=== PATIENT | male | born 1995 | race African-American/Black ===

== ENCOUNTER 2017-05-26 21:52 | Emergency (ER) | payer BC ==
--- NOTE | 2017-05-27 01:08 | ED ---
GI/ HPI - HPI Summary HPI Summary: pt was have vaginal intercourse with partner who was having her menses and condom broke---patient wishing to discuss hiv, STI exposure - History of Current Complaint Chief Complaint: EDGeneral Time Seen by Provider: 05/27/17 01:30 Stated Complaint: POSS HIV EXPOSURE Hx Obtained From: Patient Current Severity: None Pain Intensity: 0 Additional Locations for Males: Penis - some menstral blood came in contact with intact skin on his penis Associated Signs and Symptoms: Positive: Other: - this sexual partner does not inject drugs and is not a sex worker---he has no reason to suspect she is HIV + but he wants to talk over the options with some one Additional Signs & Symptoms: Negative: Lesions Aggravating Factor(s): Nothing Alleviating Factor(s): Nothing - Allergy/Home Medications Allergies/Adverse Reactions: Allergies Allergy/AdvReac Type Severity Reaction Status Date / Time No Known Allergies Allergy Verified 05/10/15 15:27 PMH/Surg Hx/FS Hx/Imm Hx Previously Healthy: Yes Endocrine/Hematology History: Denies: Hx Diabetes Cardiovascular History: Denies: Hx Hypertension, Hx Pacemaker/ICD Respiratory History: Reports: Other Respiratory Problems/Disorders - HX BCG VACCINE,POS PPD History: Denies: Hx Renal Disease Sensory History: Denies: Hx Hearing Aid Psychiatric History: Denies: Hx Panic Disorder - Immunization History Immunizations Up to Date: Yes - believes he has completed Hep B vax, but not HPV vaccine Infectious Disease History: No Infectious Disease History: Denies: Traveled Outside the [place] in Last 30 Days - Family History Known Family History: Positive: None - Social History Occupation: Student Lives: With Family Alcohol Use: Rare Hx Substance Use: No Substance Use Type: Reports: None Smoking Status (MU): Never Smoked Tobacco Review of Systems Constitutional: Negative Eyes: Negative ENT: Negative Positive: Palpitations Respiratory: Negative Gastrointestinal: Negative Genitourinary: Negative Positive: no symptoms reported Musculoskeletal: Negative Skin: Negative Neurological: Negative Positive: Anxious All Other Systems Reviewed And Are Negative: Yes Physical Exam Triage Information Reviewed: Yes Vital Signs On Initial Exam: Initial Vitals Temp Pulse Resp BP Pulse Ox 98.4 F 60 20 121/68 100 05/26/17 22:05 05/26/17 22:05 05/26/17 22:05 05/26/17 22:05 05/26/17 22:05 Vital Signs Reviewed: Yes Completion Of Physical Exam Limited Due To: Altered Mental Status Appearance: Positive: Well-Appearing, No Pain Distress, Well-Nourished Skin: Positive: Warm, Skin Color Reflects Adequate Perfusion, Dry Head/Face: Positive: Normal Head/Face Inspection Eyes: Positive: Normal, EOMI, Conjunctiva Clear ENT: Positive: Normal ENT inspection, Hearing grossly normal. Negative: Nasal congestion, Nasal drainage, Trismus, Muffled/hoarse voice Neck: Positive: Supple, Nontender Respiratory/Lung Sounds: Positive: Clear to Auscultation, Breath Sounds Present Cardiovascular: Positive: Normal, RRR Abdomen Description: Positive: Nontender, No Organomegaly, Soft Bowel Sounds: Positive: Present Musculoskeletal: Positive: Normal, Strength/ROM Intact Neurological: Positive: Normal, Sensory/Motor Intact, Alert, Oriented to Person Place, Time, Reflexes Intact, Facial Symmetry, Speech Normal Psychiatric: Positive: Normal AVPU Assessment: Alert - Lorraine Coma Scale Best Eye Response: 4 - Spontaneous Best Motor Response: 6 - Obeys Commands Best Verbal Response: 5 - Oriented Diagnostics - Vital Signs Vital Signs Temp Pulse Resp BP Pulse Ox 05/27/17 00:49 98.1 F 61 16 129/74 100 05/26/17 23:14 98.6 F 56 16 124/72 99 05/26/17 22:05 98.4 F 60 20 121/68 100 - Laboratory Lab Statement: Any lab studies that have been ordered have been reviewed, and results considered in the medical decision making process. Re-Evaluation - Re-Evaluation First Eval Change: Improved - Significant (>20mins) of education provided to patient based on [facility] Data----options for both PEP and not taking Pep presented---Patient decides to follow up in 2 weeks for a complete check up and testing for STI and treatment if Indicated, He has chosen not to take PEP but understand he may return in 36 hours from expose for medication GIGU Course/Dx - Course Assessment/Plan: safe sex practice, [facility] and [facility] - Diagnoses Differential Diagnoses - Male: Herpes, STD, Other - hiv pep, STI PEP Provider Diagnoses: Health education/counseling, Exposure to blood Discharge - Discharge Plan Condition: Stable Disposition: HOME Patient Education Materials: Safe Sex (ED) Referrals: Marco Antonio Kowalski MD [Primary Care Provider] - Additional Instructions: [facility] an excellent resource to assist both men and women in sexual healt [phone] follow up as planned with your primary care doctor in 2 weeks
[2017-05-27 01:53] VITALS: BP 108/90
== END 2017-05-27 01:53 | disposition home or self-care (01) ==
LOC: ED 21:52
DX: Z77.21 Contact with and (suspected) exposure to potentially hazardous body fluids (principal); Z71.9 Counseling, unspecified
CPT/HCPCS: 99282